=== PATIENT | male | born 1975 | race Caucasian/White ===

== ENCOUNTER 2017-05-06 20:42 | Emergency (ER) | payer OTHER ==
[~2017-05-06] VITALS: Ht 188 cm; Wt 109.8 kg
[~2017-05-06 20:42] MED LIST: DILAUDID2 MG PO; FLOMAX0.4 MG PO; IRON PO; PREVACID30 MG PO; TENORMIN25 MG PO; TORADOL10 MG PO
[2017-05-06 21:13] LABS: HEMATOCRIT 43.1 % (38.0-50.0); MCH 26.5 PG (29.0-34.0); MCV 82.7 FL (86-99); MEAN PLAT.VOLUME 9.6 uM^3 (9.0-12.4); PLATELET COUNT 324 K/uL (156-360); RBC DIS.WIDTH-CV 14.5 % (11.8-14.6); RED BLOOD COUNT 5.21 M/uL (4.00-5.50); WHITE BLOOD COUNT 9.2 K/uL (4.1-10.2)
[2017-05-06 21:27] LABS: CHLORIDE 108 mEq/L (99-109); POTASSIUM 3.9 mEq/L (3.7-5.4)
[2017-05-06 21:28] LABS: SODIUM 141 mEq/L (136-147)
[2017-05-06 21:29] LABS: GLUCOSE 105 mg/dL (70-99)
[2017-05-06 21:31] LABS: ANION GAP 10 MEQ/L (2-14)
[2017-05-06 21:33] LABS: GFR ESTIMATE (CALCULATED) > 59 mL/min/
[2017-05-06 21:34] LABS: UREA NITROGEN (BUN) 9 mg/dL (9-23)
[2017-05-06 21:35] LABS: TROP-I INTERPRETATION NEGATIVE; TROPONIN-I < 0.01 ng/mL (0.0-0.30)
[2017-05-07 00:18] LABS: TROP-I INTERPRETATION NEGATIVE; TROPONIN-I < 0.01 ng/mL (0.0-0.30)
[2017-05-07 01:03] VITALS: BP 122/80
== END 2017-05-07 01:07 | disposition home or self-care (01) ==
LOC: EME 20:42
PROVIDERS: Emergency Medicine
DX: R07.89 Other chest pain (principal); I34.1 Nonrheumatic mitral (valve) prolapse; I10 Essential (primary) hypertension; K21.9 Gastro-esophageal reflux disease without esophagitis; Z87.442 Personal history of urinary calculi; Z88.6 Allergy status to analgesic agent; Z91.041 Radiographic dye allergy status
CPT/HCPCS: 71020; 80048; 84484; 85027; 93005; 99281; 99285

== ENCOUNTER → 2017-10-07 | Outpatient (CLI) | payer OTHER ==
[~2017-10-07] VITALS: Ht 175.3 cm; Wt 112.0 kg
[~2017-10-07] MED LIST changes: +VERAPAMIL HCL240 MG PO
[2017-10-07 19:54] VITALS: BP 131/91
[2017-10-07 20:06] LABS: HEMATOCRIT 48.1 % (38.0-50.0); HEMOGLOBIN 15.5 G/DL (12.5-16.6); MCH 25.9 PG (29.0-34.0); MCHC 32.2 G/DL (30.0-36.0); MCV 80.4 FL (86-99); PLATELET COUNT 389 K/uL (156-360); RBC DIS.WIDTH-CV 14.5 % (11.8-14.6); RBC DIS.WIDTH-SD 42.2 % (39-53); RED BLOOD COUNT 5.98 M/uL (4.00-5.50); WHITE BLOOD COUNT 9.5 K/uL (4.1-10.2)
[2017-10-07 20:37] LABS: CHLORIDE 105 MEQ/L (99-109); POTASSIUM 4.1 MEQ/L (3.7-5.4); SODIUM 135 MEQ/L (136-147)
[2017-10-07 20:42] LABS: CREATININE 0.8 MG/DL (0.6-1.3); GFR ESTIMATE (CALCULATED) > 59 mL/min/ (58.99-99999); GLUCOSE 97 mg/dL (70-99); UREA NITROGEN (BUN) 10 mg/dL (9-23)
== END | disposition home or self-care (01) ==
LOC: IVINF 19:41
PROVIDERS: Physician Assistant
DX: E86.0 Dehydration (principal)
CPT/HCPCS: 80048; 85027; 96360; J7030

== ENCOUNTER → 2017-11-11 | Outpatient (CLI) | payer OTHER | END | disposition home or self-care (01) | LOC: NUC 06:40 | DX: K21.9 Gastro-esophageal reflux disease without esophagitis (principal) | CPT/HCPCS: 78264; A9541 ==